=== PATIENT | female | born 1975 | race Caucasian/White ===

== ENCOUNTER → 2016-06-12 | Day surgery (SDC) | payer OTHER ==
[2016-06-10 16:19] VITALS: BMI 20.9
[~2016-06-12] MED LIST: BUPIVACAIN-EPI 0.25%-1:200,000 30 ML VIAL SQ ONE; CLINDAMYCIN 600 MG in DEXTROSE 5% IN WATER 50 ML IVPB ONE; FAMOTIDINE 20 MG/2 ML VIAL IV PRN; HYDROmorphone 1 MG/ML 1 ML SYRINGE IVP PRN; KETOROLAC 30 MG/ML 1 ML VIAL IVP SCH; KETOROLAC 30 MG/ML 1 ML VIAL ONE; LACTATED RINGERS 1,000 ML IV SCH; LIDOCAINE 1% 20 ML VIAL (10MG/ML) FOR IV START INTRADERMA PRN; LIDOCAINE 1% INJ 10MG/ML (20 ML MDV) ONE; MIDAZOLAM 2 MG/2 ML VIAL IV PRN; MIDAZOLAM 2 MG/2 ML VIAL ONE; NALOXONE 0.4 MG/ML 1 ML VIAL IV PRN; ONDANSETRON 4 MG/2 ML VIAL IVP PRN; PROPOFOL 10 MG/ML 20 ML VIAL IV ONE; Pre Op ABX Message 1 EACH MISC MISCELLANE ONE; fentaNYL (PF) 50 MCG/ML 2 ML AMP ONE
--- NOTE | 2016-06-12 06:18 | P.GSHP ---
History of Present Illness H&P Date: 06/12/16 CHIEF COMPLAINT: Painful lesions left labial lesion. HISTORY OF PRESENT ILLNESS: Sarah Maldonado is a 40 year-old female who reports a 6 month growth along the perineum. She reports increased pain as well as discomfort. She has tried rectal creams without any improvement. Separately, she has seen her primary care provider who had recommended excision and biopsy of the area. She reports exposure to contacts with warts. She now presents for further evaluation and management. PAST MEDICAL HISTORY: Please see list. PAST SURGICAL HISTORY: Please see list. MEDICATIONS: Please see list. ALLERGIES: Please see list. SOCIAL HISTORY: No illicit drug use FAMILY HISTORY: No reports of Crohn disease or ulcerative colitis. REVIEW OF ORGAN SYSTEMS: CONSTITUTIONAL: No reports of fevers or chills. GI: Denies any blood in stools or constipation. PHYSICAL EXAM: VITAL SIGNS: Stable Skin: Perineal area along the left labia 2 x 1 cm pigmented area between at the perineum on the left labia. GENERAL: Well developed and in no acute distress. Pleasant. HEENT: No sclera icterus. Extraocular movements grossly intact. Moist buccal mucosa. Head is atraumatic, normocephalic. Hears conversational speech. No nasal drainage. NECK: Supple without lymphadenopathy. No JV distention. CHEST: Non-labored respirations and equal bilateral excursions. CARDIOVASCULAR: Regular rate and rhythm. Palpable 2+ radial pulses. ABDOMEN: Soft. Non-tender. Nondistended. NEUROLOGIC: No focal or lateralizing signs. MUSCULOSKELETAL: No clubbing, cyanosis, or edema. PSYCH: Appropriate affect. Alert and oriented to person, place and time. ASSESSMENT: 1. Left labial lesion. PLAN: 1. Options included biopsy with laser treatment with accountant was reviewed. 2. Alternatives of surgical excision were reviewed. 3. The patient has elected for excision of the lesion. Postoperative course and pain management with over the counter pain medications and limited narcotics were reviewed. 4. DVT prophylaxis. 5. Antibiotics prophylaxis. Past Medical History Past Medical History: GERD/Reflux Additional Past Medical History / Comment(s): hypoglycemia History of Any Multi-Drug Resistant Organisms: None Reported Past Surgical History: Section Additional Past Surgical History / Comment(s): x2 Past Anesthesia/Blood Transfusion Reactions: No Reported Reaction Past Psychological History: Anxiety Smoking Status: Current every day smoker Past Alcohol Use History: Occasional Past Drug Use History: None Reported - Past Family History Mother Family Medical History: No Reported History Medications and Allergies Home Medications Medication Instructions Recorded Confirmed Type Ibuprofen [Motrin] 800 mg PO Q8HR PRN 06/10/16 06/10/16 History Allergies Allergy/AdvReac Type Severity Reaction Status Date / Time acetaminophen [From Vicodin] Allergy Confusion Verified 06/10/16 16:12 codeine Allergy Confusion Verified 06/10/16 16:12 and dizzyness hydrocodone [From Vicodin] Allergy Confusion Verified 06/10/16 16:12 Penicillins Allergy Anaphylaxis Verified 06/10/16 16:12 Sulfa (Sulfonamide Allergy Anaphylaxis Verified 06/10/16 16:12 Antibiotics)
[2016-06-12 12:34] VITALS: TEMP 98.1
[2016-06-12 12:56] LABS: Glucose,Whole Blood 90 mg/dL (75-99)
--- NOTE | 2016-06-12 14:12 | P.PCN ---
Date of Procedure: 06/12/16 Preoperative Diagnosis: Left labial lesion Postoperative Diagnosis: Left labile neoplasm 8 mm x 3 mm Procedure(s) Performed: Excision of left labial lesion with margins 4 mm x 10 mm Anesthesia: MAC, local Surgeon: Clair Barry Estimated Blood Loss (ml): 2 Pathology: other (Left labial lesion) Condition: stable Disposition: same day
[2016-06-12 14:27] VITALS: RESP 18
[2016-06-12 14:45] VITALS: BP 98/57; PULSE 68
--- NOTE | 2016-06-15 08:00 | P.OP ---
Date of Procedure: 06/12/16 Description of Procedure: SURGEON: CELINA JUARES MD WORKERS' COMPENSATION CLAIMS EXAMINER: None. PREOPERATIVE DIAGNOSES: 1. Left labial lesion. POSTOPERATIVE DIAGNOSES: 1. Left labial skin neoplasm 8 mm x 3 mm PROCEDURES PERFORMED: 1. Excision of left labial lesion with margins 4 mm x 10 mm. ANESTHESIA: IV sedation with 30 mL 0.25 percent Marcaine with epinephrine. ESTIMATED BLOOD LOSS: 2 mL. SPECIMENS REMOVED: Left labial skin lesion COMPLICATIONS: None. INDICATIONS: The patient is a 40-year-old female who presents with a growth along the skin of the left labia for several months. She reports increased pain and discomfort. Now she presents for surgical intervention. Benefits and risks of surgical intervention were described including bleeding, infection. Informed consent was obtained. DESCRIPTION OR PROCEDURE: Patient was brought into the operating room, laid in supine position. After adequate IV sedation, she was repositioned in modified lithotomy position. The perineum was prepped and draped in a standard sterile fashion with Betadine. Timeout protocol was confirmed with the surgical team regarding the patient's name, procedure to be performed including preoperative medications. A field block was placed along the left labia. Indelible marker was placed around the skin lesion in an elliptical fashion. An incision using #15 blade was made along the marking into the dermis and subcutaneous tissue. Electro-Bovie cautery was used for hemostasis. 3-0 Vicryl was placed in interrupted fashion along the deep dermis. 4-0 Monocryl in an interrupted subcuticular fashion was placed. The skin was cleansed and Dermabond was applied. The incision was covered with ster-strip and gauze. Mesh underwear was placed. At the end of the procedure, needle, sponge, and instrument count was verified correct by final operations technician. The patient was awoken and taken to the second stage postanesthesia care unit. The patient tolerated the procedure well. FINDINGS: 1. Skin lesion raised papule along the left labia with excision 8 mm x 3 mm.
--- NOTE | 2016-06-17 12:00 | CDI ---
Dear Dr. Barry Per your procedure note under Procedures performed, excision of labial lesion was documented. In the body of the report, there is only documentation that the chest and neck were prepped and draped and that a cyst of excised. Then under Findings, a cyst of the upper inner quandrant of the breast is documented. Please clarify the part of the body where the lesion was excised. Please document this clarification as an addendum to the operative note. Thank you for your time, Sarah Hensley,[facility] Outpatient Manager Of Human Resources [email or web address] THE SURGICAL OP NOTE IS IN DRAFT AND NOT A FINAL REPORT....THE REPORT IS STILL BEING EDITTED....PLEASE SEE FINAL OP NOTE WHEN SIGNED.....THANK YOU.... GERA ALVARADO
== END | disposition home or self-care (01) ==
LOC: OR 11:57
PROVIDERS: ATTEND Surgery Plastic and Reconstructive Surgery
DX: N90.3 Dysplasia of vulva, unspecified (principal); F17.200 Nicotine dependence, unspecified, uncomplicated; E16.2 Hypoglycemia, unspecified; Z88.5 Allergy status to narcotic agent; Z88.0 Allergy status to penicillin; Z88.2 Allergy status to sulfonamides
CPT/HCPCS: 81025; 88305; 11421; J2250; J2405; J2001; J3010; J1885; J2704; 99152; 99153

== ENCOUNTER 2016-06-29 00:33 | Emergency (ER) | payer OTHER ==
[2016-06-29 00:40] VITALS: BP 121/57; PULSE 82; RESP 20
[2016-06-29 00:44] VITALS: TEMP 98.7
--- NOTE | 2016-06-29 00:54 | ED ---
ENT HPI - General Chief complaint: ENT Stated complaint: Sore Throat Time Seen by Provider: 06/29/16 00:42 Source: patient, family, RN notes reviewed Mode of arrival: ambulatory Limitations: no limitations - History of Present Illness Initial comments: Patient is a 40-year-old female presents to the emergency room for evaluation of sore throat and sinus congestion. Patient states sore throat began yesterday. Patient states she noticed her lymph nodes on her neck are swollen. Patient states she's been having sinus congestion for the past week. Patient states she had a lesion removed from her labia a week ago which was placed on Keflex for. Patient states the Keflex is not helping her sinus symptoms. Patient denies receiving her influenza vaccine this year. Patient does admit to having on and off hot flashes. Patient states she is having a dry cough. Patient denies shortness of breath or chest pain. Patient does admit she smokes a pack per day. Patient states having slight left ear pain. Patient denies ringing in the ears. Patient denies headache or dizziness. Patient denies abdominal pain. Patient does states she had one episode of diarrhea this morning but states that she did have a cup of coffee prior to the event. Patient denies any other symptoms or complaints. - Related Data Home Medications Medication Instructions Recorded Confirmed Ibuprofen [Motrin] 800 mg PO Q8HR PRN 06/10/16 06/29/16 Cephalexin [Keflex] 500 mg PO Q8HR 06/29/16 06/29/16 Previous Rx's Medication Instructions Recorded Azithromycin [Zithromax Z-pack] 250 mg PO DIRECTED #6 tab 06/29/16 Fluticasone Nasal Holderness [Flonase 2 spr EA NOSTRIL DAILY PRN #1 06/29/16 Nasal Holderness] bottle predniSONE 40 mg PO DAILY #5 tab 06/29/16 Allergies Allergy/AdvReac Type Severity Reaction Status Date / Time acetaminophen [From Vicodin] Allergy Confusion Verified 06/29/16 00:40 codeine Allergy Confusion Verified 06/29/16 00:40 and dizzyness hydrocodone [From Vicodin] Allergy Confusion Verified 06/29/16 00:40 Penicillins Allergy Anaphylaxis Verified 06/29/16 00:40 Sulfa (Sulfonamide Allergy Anaphylaxis Verified 06/29/16 00:40 Antibiotics) Review of Systems ROS Statement: Those systems with pertinent positive or pertinent negative responses have been documented in the HPI. ROS Other: All systems not noted in ROS Statement are negative. Past Medical History Past Medical History: GERD/Reflux Additional Past Medical History / Comment(s): hypoglycemia, back pain History of Any Multi-Drug Resistant Organisms: None Reported Past Surgical History: Section Additional Past Surgical History / Comment(s): x2 Past Anesthesia/Blood Transfusion Reactions: No Reported Reaction Past Psychological History: Anxiety Smoking Status: Current every day smoker Past Alcohol Use History: Occasional Past Drug Use History: None Reported - Past Family History Mother Family Medical History: No Reported History General Exam - General Exam Comments Initial Comments: Sitting in exam room, no acute distress. Limitations: no limitations General appearance: alert, in no apparent distress Head exam: Present: atraumatic, normocephalic, normal inspection Eye exam: Present: normal appearance ENT exam: Present: mucous membranes moist, TM's normal bilaterally, other ( Tenderness on palpating over bilateral maxillary sinuses) Expanded Ear exam: Present: normal external inspection Mouth exam: Present: normal external inspection Teeth exam: Absent: normal inspection (Patient has very poor dentition) Throat exam: tonsillar erythema. negative: tonsillomegaly Neck exam: Present: normal inspection, tenderness (Anterior cervical lymph nodes ), full ROM, lymphadenopathy (Palpable anterior cervical lymph nodes) Respiratory exam: Present: normal lung sounds bilaterally. Absent: respiratory distress Cardiovascular Exam: Present: regular rate, normal rhythm, normal heart sounds Extremities exam: Present: normal inspection Back exam: Present: normal inspection Neurological exam: Present: alert, oriented X3, CN II-XII intact, normal gait Psychiatric exam: Present: normal affect, normal mood Skin exam: Present: warm, dry, intact, normal color. Absent: rash Course Vital Signs 06/29/16 00:37 Temperature 98.7 F Pulse Rate 82 Respiratory 20 Rate Blood Pressure 121/57 O2 Sat by Pulse 100 Oximetry Medical Decision Making - Medical Decision Making Patient is a 40-year-old female presents to the emergency room for evaluation of sore throat and sinus congestion. Rapid strep negative. Patient refused influenza. Will switch patient from Keflex to azithromycin. We will also place patient on prednisone since and Flonase nasal spray for sinus congestion. Patient states she understands everything that was discussed with her. Return parameters discussed. Case discussed with Dr. Beavers. - Lab Data Lab Results 06/29/16 Range/Units 00:47 Group A Strep Rapid Negative (Negative) Disposition Clinical Impression: Sinusitis, Viral pharyngitis Disposition: HOME SELF-CARE Condition: Good Instructions: Rhinosinusitis (ED) Additional Instructions: Discontinue Keflex. Take medications as directed. Please follow up with primary care provider in 1-2 days. If any new symptom arises or symptoms worsen , return to ER as soon as possible. Prescriptions: Azithromycin [Zithromax Z-pack] 250 mg PO DIRECTED #6 tab Fluticasone Nasal Holderness [Flonase Nasal Holderness] 2 spr EA NOSTRIL DAILY PRN #1 bottle PRN Reason: Congestion predniSONE 40 mg PO DAILY #5 tab Referrals: Nonstaff,Physician [Primary Care Provider] - 1-2 days Time of Disposition: 01:28
== END 2016-06-29 01:44 | disposition home or self-care (01) ==
LOC: SUPCPDRO 00:33 → EC 00:33
DX: J02.9 Acute pharyngitis, unspecified (principal); J01.00 Acute maxillary sinusitis, unspecified; R19.7 Diarrhea, unspecified; F17.200 Nicotine dependence, unspecified, uncomplicated; Z88.6 Allergy status to analgesic agent; Z88.5 Allergy status to narcotic agent; Z88.0 Allergy status to penicillin; Z88.2 Allergy status to sulfonamides
CPT/HCPCS: 87081; 87430; 99283